=== PATIENT | male | born 1965 | race Two or more races ===

== ENCOUNTER 2017-01-23 20:06 | Emergency (ER) | payer MEDICAID ==
[~2017-01-23] VITALS: Ht 175.3 cm; Wt 77.1 kg
[2017-01-23] MEDS ORDERED: Tetracaine 0.5% Opth Soln ONE (20:26)
[2017-01-23] MEDS ORDERED: Fluorescein Strips ONE (20:26)
[2017-01-23 20:30] VITALS: BP 149/84
[2017-01-23] MEDS ORDERED: OCUFLOX5 ML LEFT EYE (21:04)
[2017-01-23 21:10] VITALS: BP 149/84
--- NOTE | 2017-01-25 07:24 | Emergency Room Report ---
History of Present Illness General Chief Complaint: Eye Problems Source: Patient Present Illness HPI 51-year-old male presents ED complaining of left eye pain. States that while gardening today a rock hit him in the eye. Denies any other injuries. Tetanus is up-to-date. Notes pain and blurry vision to the left eye. Pain is throbbing , 8/10, nonradiating. Denies photophobia. No other aggravating or relieving factors. Denies any other associated symptoms Allergies: Coded Allergies: No Known Allergies (Unverified , 01/23/17) Patient History Past Medical History: none Past Surgical History: none Pertinent Family History: none Social History: Denies: alcohol use, drug use, smoking Immunizations: UTD Reviewed Nursing Documentation: PMH: Agreed, PSxH: Agreed Nursing Documentation-PMH Past Medical History: No Stated History Review of Systems All Other Systems: negative except mentioned in HPI Physical Exam Vital Signs Date Time Temp Pulse Resp B/P Pulse Ox O2 Delivery O2 Flow Rate FiO2 01/23/17 20:16 97.9 73 14 161/95 98 Room Air Sp02 EP Interpretation: reviewed, normal General Appearance: no apparent distress, alert, GCS 15, non-toxic Head: normocephalic, atraumatic Eyes: left eye Scleral Injection, bilateral eye EOMI, bilateral eye PERRL, bilateral eye normal inspection, bilateral eye visual acuity ENT: normal ENT inspection Neck: normal inspection Respiratory: normal inspection Cardiovascular #1: normal inspection Gastrointestinal: normal inspection Rectal: deferred Genitourinary: no CVA tenderness Musculoskeletal: normal inspection Neurologic: alert, oriented x3, responsive, motor strength/tone normal, sensory intact, speech normal Psychiatric: judgement/insight normal, memory normal, mood/affect normal, no suicidal/homicidal ideation Skin: normal inspection Lymphatic: normal inspection Medical Decision Making Diagnostic Impression: Primary Impression: Corneal abrasion Qualified Codes: S05.02XA - Injury of conjunctiva and corneal abrasion without foreign body, left eye, initial encounter ER Course Hospital Course 51-year-old male presents to ED with left eye pain, feel something in his eye Differential diagnoses include: conjunctivitis, traumatic iritis, foreign body, corneal abrasion Clinical course Patient placed on stretcher. After initial history, I applied tetracaine and Fluorescin to the affected eye. Using Wood's lamp I examined the eyes, there is evidence of corneal abrasion. I inverted eyelid and saw no evidence of foreign body. I provided copious eye irrigation using normal saline. Symptoms improved. Diagnosis - corneal abrasion Stable and discharged to home with prescription for Ocuflox. Followup with PMD/ Optho. Return to ED if symptoms recur or worsen Last Vital Signs Date Time Temp Pulse Resp B/P Pulse Ox O2 Delivery O2 Flow Rate FiO2 01/23/17 21:10 97.9 84 14 149/84 98 Room Air Status: improved Disposition: HOME, SELF-CARE Condition: Stable Scripts Ofloxacin (OCUFLOX) 5 Ml Drops 1 DROP LEFT EYE QID for 7 Days, ML Prov: TRUDY OLSEN M.D. 01/23/17 Referrals: NOT CHOSEN [facility]/,REFERRING (PCP) Patient Instructions: Corneal Abrasion, [id number] TRUDY OLSEN M.D. Jan 25, 2017 07:23
== END 2017-01-23 21:10 | disposition home or self-care (01) ==
LOC: EMR 20:37
DX: S05.02XA Injury of conjunctiva and corneal abrasion without foreign body, left eye, initial encounter (principal); W22.8XXA Striking against or struck by other objects, initial encounter; Y93.H2 Activity, gardening and landscaping; Y92.89 Other specified places as the place of occurrence of the external cause
CPT/HCPCS: 99283

== ENCOUNTER 2017-01-31 12:45 | Emergency (ER) | payer MEDICAID ==
[~2017-01-31] VITALS: Ht 170.2 cm; Wt 72.6 kg
[~2017-01-31 12:45] MED LIST: OCUFLOX5 ML LEFT EYE
[2017-01-31] MEDS ORDERED: Fluorescein Strips LEFT EYE ONE (13:15)
[2017-01-31] MEDS ORDERED: Tetracaine 0.5% Opth Soln LEFT EYE ONE (13:15)
--- NOTE | 2017-01-31 13:41 | Emergency Room Report ---
History of Present Illness General Chief Complaint: Eye Problems Source: Patient Present Illness HPI Pt. presents to the ED c/o : left eye pain, redness, scratching sensation and increased tearing x 7day(s). was seen here in ED last week. has been using opthalmic Occuflox. Denies Contact lens use. denies hx of eye problems in the past. pt. reports scratching sensation, photophobia, and rates his pain as 8/10 in severity. denies changes in vision, floaters, flashing lights, loss of vision , swelling of the eyelids, discharge, or having eyes stuck shut. Denies CP, Palpitations, LOC, AMS, dizziness, Changes in Vision, Sensation, paresthesias, or a sudden severe headache. Allergies: Coded Allergies: No Known Allergies (Unverified , 01/23/17) Patient History Past Medical History: see triage record Past Surgical History: none Pertinent Family History: none Immunizations: UTD Reviewed Nursing Documentation: PMH: Agreed, PSxH: Agreed Nursing Documentation-PMH Past Medical History: No Stated History Review of Systems All Other Systems: negative except mentioned in HPI Physical Exam Vital Signs Date Time Temp Pulse Resp B/P Pulse Ox O2 Delivery O2 Flow Rate FiO2 01/31/17 12:50 98.2 63 14 164/91 96 Room Air Sp02 EP Interpretation: reviewed, normal General Appearance: no apparent distress, alert, GCS 15, non-toxic Head: normocephalic, atraumatic Eyes: left eye fluoroscene uptake - fluoroscene up take in linear fashion horizontally just below the pupil, slit lamp examination does not show iritis or fb. lid inversion is negative for fb, pt. has pingueculeum as well of left eye. , bilateral eye PERRL, bilateral eye normal inspection ENT: hearing grossly normal, normal pharynx, no angioedema, normal voice Neck: full range of motion, supple/symm/no masses Respiratory: chest non-tender, lungs clear, normal breath sounds, speaking full sentences Cardiovascular #1: regular rate, rhythm, no edema Cardiovascular #2: 2+ carotid (R), 2+ carotid (L), 2+ radial (R), 2+ radial (L) , 2+ dorsalis pedis (R), 2+ dorsalis pedis (L) Gastrointestinal: normal bowel sounds, non tender, soft, no guarding, no rebound Rectal: deferred Genitourinary: normal inspection, no CVA tenderness Musculoskeletal: back normal, gait/station normal, normal range of motion, non- tender, no calf tenderness Neurologic: alert, oriented x3, responsive, motor strength/tone normal, sensory intact, speech normal Psychiatric: judgement/insight normal, memory normal, mood/affect normal, no suicidal/homicidal ideation Reflexes: 4+ bicep (R), 4+ bicep (L), 4+ tricep (R), 4+ tricep (L), 4+ knee (R) , 4+ knee (L) Skin: normal color, no rash, warm/dry, well hydrated Lymphatic: no adenopathy Medical Decision Making PA Attestation Dr. moon is my supervising Physician whom patient management has been discussed with. Diagnostic Impression: Primary Impression: Corneal abrasion Qualified Codes: S05.02XD - Injury of conjunctiva and corneal abrasion without foreign body, left eye, subsequent encounter ER Course Pt. presents to the ED c/o : left eye pain, redness, scratching sensation and increased tearing x 7day(s). was seen here in ED last week. has been using opthalmic Occuflox. - denies Contact lens use. Ddx considered but are not limited to: corneal abrasion, acute glaucoma, globe rupture, FB, Corneal Ulcer, conjunctivitis. Iridis Vital signs: are WNL, pt. is afebrile H&PE are most consistent with: corneal abrasion. ORDERS: -Tetracaine and Fluorescein Stain of the POSITIVE fluorescein uptake in linear fashion horizontally just below the pupil, slit lamp examination does not show iritis or fb. Lid inversion is negative for fb, pt. has pinguecula as well of left eye.There is no involvement of the iris or pupil. Negative Cecille sign. Pt. had positive relief of pain with tetracaine drops. there was negative evidence of Fb, deep ulcer, or rupture. ED INTERVENTIONS: none at this time. D/W Proper followup and urged patient to see postdoctoral scientist within 48 hours as he states he never followed up from previous visit one week ago. Discussed with patient that from an emergency standpoint there is nothing more to be done and that an eyewear manufacturing supervisor would need to evaluate him for delayed healing. --Pt is provided with list of free/reduced cost health clinics to follow up at. DISCHARGE: At this time pt. is stable for d/c to home. Will provide printed patient care instructions, and any necessary prescriptions. Care plan and follow up instructions have been discussed with the patient prior to discharge. . Last Vital Signs Date Time Temp Pulse Resp B/P Pulse Ox O2 Delivery O2 Flow Rate FiO2 01/31/17 12:50 98.2 63 14 164/91 96 Room Air Disposition: HOME, SELF-CARE Condition: Stable Scripts Diclofenac Sodium (DICLOFENAC SODIUM*) 2.5 Ml Drops 1 DROP LEFT EYE QID for For Pain, #2.5 ML 0 Refills Prov: Cesia Webb 01/31/17 Tobramycin Sulf (Tobramycin) 5 Ml Drops 3 DROP LEFT EYE Q4H for 5 Days, #5 ML Prov: Cesia Webb 01/31/17 Referrals: NOT CHOSEN [facility]/MD,REFERRING (PCP) Patient Instructions: Corneal Abrasion Additional Instructions: Take medications as directed. Follow up with PCP or MILIEU COORDINATOR within 48 HOURS Return sooner to ED if new symptoms occur, or current symptoms become worse. *!* Review provided list of free or reduced cost health clinics for follow up * !* - Please note that this Emergency Department Report was dictated using [employer] thread winder technology software, occasionally this can lead to erroneous entry secondary to interpretation by the dictation equipment. Cesia Webb Jan 31, 2017 13:41
[2017-01-31] MEDS ORDERED: DICLOFENAC SOD2.5 ML LEFT EYE (13:43)
[2017-01-31] MEDS ORDERED: AKTOB1 DROP LEFT EYE (13:43)
[2017-01-31 13:55] VITALS: BP 158/87
== END 2017-01-31 13:57 | disposition home or self-care (01) ==
LOC: EMR 13:05
DX: S05.02XA Injury of conjunctiva and corneal abrasion without foreign body, left eye, initial encounter (principal); X58.XXXA Exposure to other specified factors, initial encounter; Y92.89 Other specified places as the place of occurrence of the external cause
CPT/HCPCS: 99284; Z7502